=== PATIENT | female | born 1980 | race Caucasian/White ===

== ENCOUNTER → 2025-05-04 | Emergency (ER) | payer OTHER ==
[~2025-05-04] VITALS: Ht 170.2 cm; Wt 113.4 kg
[~2025-05-04] MED LIST: ATORVASTATIN CA20 MG PO; BUPROPION XL450 MG PO; COZAAR100 MG PO; METFORMIN HCL500 M3 PO; MOUNJARO2.5 MG/0.5 SQ
== END | disposition left against medical advice (07) ==
LOC: ER 18:48
DX: Z53.21 Procedure and treatment not carried out due to patient leaving prior to being seen by health care provider (principal)